=== PATIENT | female | born 1995 | race African-American/Black ===

== ENCOUNTER 2018-10-26 00:57 | Emergency (ER) | payer OTHER ==
[~2018-10-26] VITALS: Ht 157.5 cm; Wt 77.1 kg
[~2018-10-26 00:57] MED LIST: MACROBID 100 M100 M1 PO; TRINATE TABLET1 TAB PO
[2018-10-26 01:23] LABS: URINE BILIRUBIN NEGATIVE (Negative); URINE BLOOD NEGATIVE (Negative); URINE CLARITY CLEAR; URINE COLOR YELLOW; URINE GLUCOSE-RANDOM* NEGATIVE (Negative); URINE KETONES 1+ (Negative); URINE LEUKOCYTES-REFLEX NEGATIVE (Negative); URINE NITRITE-REFLEX NEGATIVE (Negative); URINE PROTEIN (DIPSTICK) NEGATIVE (Negative); URINE UROBILINOGEN 0.2 E.U./dl (0.2-1.0)
[2018-10-26 02:55] VITALS: BP 102/61
== END 2018-10-26 03:37 | disposition home or self-care (01) ==
LOC: ER 00:57
PROVIDERS: Student in an Organized Health Care Education/Training Program
DX: O26.891 Other specified pregnancy related conditions, first trimester (principal); A64 Unspecified sexually transmitted disease; Z88.8 Allergy status to other drugs, medicaments and biological substances; Z3A.08 8 weeks gestation of pregnancy